=== PATIENT | female | born 1985 | race Caucasian/White ===

== ENCOUNTER → 2017-06-05 | Outpatient (CLI) | payer MEDICAID | LOC: BRMIMAGING 15:00 | PROVIDERS: ATTEND Registered Nurse | DX: M54.6 Pain in thoracic spine (principal); M51.24 Other intervertebral disc displacement, thoracic region; M51.34 Other intervertebral disc degeneration, thoracic region; M25.78 Osteophyte, vertebrae; M43.06 Spondylolysis, lumbar region; R93.8 Abnormal findings on diagnostic imaging of other specified body structures | CPT/HCPCS: 72070-PO; 72100-PO ==